=== PATIENT | female | born 1975 | race Caucasian/White ===

== ENCOUNTER 2017-10-12 01:05 | Emergency (ER) | payer OTHER ==
[~2017-10-12] VITALS: Ht 180.3 cm; Wt 72.6 kg
[~2017-10-12 01:05] MED LIST: AZITHROMYCIN 2250 MG PO; NOHOMEMEDICATIONS; PROVENTIL HFA6.7 G1 INH; TESSALON PERLE100 MG PO
[2017-10-12] MEDS ORDERED: VITAMIN D (01:13)
[2017-10-12 01:38] LABS: ABSOLUTE BASOPHILS 0.1 thou/uL (0.0-0.2); ABSOLUTE EOSINOPHILS 0.3 thou/uL (0.0-0.7); ABSOLUTE LYMPHOCYTES 3.2 thou/uL (0.8-5.3); ABSOLUTE MONOCYTES 0.7 thou/uL (0.0-1.2); ABSOLUTE NEUTROPHILS 3.3 thou/uL (1.6-8.1); BASOPHILS 0.9 %; EOSINOPHILS 4.2 %; HEMATOCRIT 40.8 % (37.0-47.0); HEMOGLOBIN 13.7 gm/dL (12.0-15.0); MCH 29.9 pg (26.0-34.0); MCHC 33.6 g/dL (28.0-37.0); MCV 88.7 fL (80.0-100.0); MONOCYTES 9.3 %; MPV 8.5 fl. (7.2-11.1); NUCLEATED RBCS 0 /100WBC; PLATELET COUNT* 292 thou/uL (150-400); POLYS 43.6 %; RBC 4.59 mil/uL (4.20-5.00); RDW-CV 14.9 % (10.5-14.5); WBC 7.5 thou/uL (4.0-11.0)
[2017-10-12 01:50] LABS: ANION GAP 11 mmol/L (7-16); BUN 17 mg/dL (7-18); CALCIUM 8.9 mg/dL (8.5-10.1); CHLORIDE 105 mmol/L (98-107); CO2 27 mmol/L (21-32); GLUCOSE 99 mg/dL (70-99); POTASSIUM 3.2 mmol/L (3.5-5.1); SODIUM 143 mmol/L (136-145)
[2017-10-12 02:00] LABS: ALBUMIN 3.5 g/dL (3.4-5.0); ALKALINE PHOSPHATASE 54 U/L (46-116); LIPASE 170 U/L (73-393); NT-PRO BRAIN NAT PEPTIDE 107 pg/mL (<300); SGOT 19 U/L (15-37); SGPT 20 U/L (30-65); TOTAL BILIRUBIN 0.2 mg/dL (<0.1-1.0); TOTAL PROTEIN 7.1 g/dL (6.4-8.2); TROPONIN-I LEVEL <0.06 ng/mL (<0.06)
[2017-10-12 04:33] VITALS: BP 126/71
--- NOTE | 2017-10-12 14:24 | EKG ---
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
--- NOTE | 2017-10-12 14:24 | EKG ---
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1975 Requested By: David Quigley Order Number: [id number] MD: Kvng Winter Measurements Intervals [place] Rate: 57 P: 23 PA: 159 QRS: -13 QRSD: 102 T: 42 QT: 464 QTc: 452 Interpretive Statements Sinus rhythm Borderline low voltage, extremity leads No previous ECG available for comparison Electronically Signed On 10-12-2017 14:24:43 CDT by Kvng Winter [email or web address] <ELECTRONICALLY SIGNED> By: Kvng Winter MD, [facility] 10/12/17 1424 0405 0405 Kvng Winter MD, FACC /EPI
--- NOTE | 2017-10-12 14:25 | EKG ---
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
== END 2017-10-12 04:33 | disposition home or self-care (01) ==
LOC: M.ERS 01:05
PROVIDERS: Emergency Medicine Emergency Medical Services
DX: R07.9 Chest pain, unspecified (principal)